=== PATIENT | female | born 1990 | race Caucasian/White ===

== ENCOUNTER 2017-12-08 21:01 | Observation (INO) | payer SELFPAY ==
--- NOTE | 2017-12-08 21:18 | PDOC ---
Rapid Medical Evaluation Time Seen by Provider: 12/08/17 21:13 Medical Evaluation: Allergies Allergy/AdvReac Type Severity Reaction Status Date / Time Sulfa (Sulfonamide Allergy Unknown Verified 02/27/16 21:55 Antibiotics) 12/08/17 21:13 27 year old female with scattered, non-blanching, erythematous, raised lesions to hands, feet (not palms or soles), and legs. Lesions are painful and itchy. Also has multiple lesions to lips. No new medications or foods. No fevers. Has bodyaches and joint pains. Took Benadryl without improvement. Has had similar rash twice in the past, lasted about one week, never definitive diagnosis. V/s unremarkable. Basic labs To Main ED for further evaluation
[2017-12-08 22:18] LABS: ALK PHOS 83 U/L (45-117); ANION GAP 8 (8-16); BASO % 0.2 % (0-2.0); BILIRUBIN,TOTAL 0.2 mg/dL (0.2-1.0); BLOOD UREA NITROGEN 17 mg/dL (7-18); CALCIUM 8.9 mg/dL (8.5-10.1); CHLORIDE 108 mmol/L (98-107); CO2 24 mmol/L (21-32); CREATININE 0.7 mg/dL (0.55-1.02); EOS % 1.6 % (0-4.5); GLUCOSE,RANDOM 101 mg/dL (74-106); HEMATOCRIT 39.6 % (32.4-45.2); HEMOGLOBIN 13.2 GM/dL (10.7-15.3); LYMPH % 32.7 % (8-40); MCH 30.3 pg (25.7-33.7); MCHC 33.4 g/dl (32.0-36.0); MEAN CELL VOLUME 90.7 fl (80-96); MEAN PLT VOLUME 7.9 fl (7.5-11.1); MONO % 7.4 % (3.8-10.2); NEUT % 58.1 % (42.8-82.8); PLATELET COUNT 272 K/MM3 (134-434); POTASSIUM 3.7 mmol/L (3.5-5.1); RBC 4.36 M/mm3 (3.60-5.2); RDW 13.1 % (11.6-15.6); SGOT/AST 19 U/L (15-37); SGPT/ALT 38 U/L (12-78); SODIUM 140 mmol/L (136-145); TOT PROT 7.3 g/dl (6.4-8.2); WHITE BLOOD COUNT 8.1 K/mm3 (4.0-10.0)
[2017-12-08 22:21] LABS: URINE APPEARANCE CLEAR; URINE BILIRUBIN NEGATIVE (NEGATIVE); URINE BLOOD NEGATIVE (NEGATIVE); URINE COLOR YELLOW; URINE GLUCOSE (UA) NEGATIVE (NEGATIVE); URINE KETONE NEGATIVE (NEGATIVE); URINE LEUK ESTERASE TRACE (NEGATIVE); URINE NITRITE NEGATIVE (NEGATIVE); URINE PROTEIN NEGATIVE (NEGATIVE)
[2017-12-08 22:28] LABS: HCG,QUALITATIVE URINE NEGATIVE
[2017-12-08 22:41] LABS: EPI CELLS FEW /HPF (FEW); URINE MUCUS RARE
[2017-12-08 22:42] LABS: INR 1.03 (0.82-1.09); PROTHROMBIN TIME (PATIENT) 11.6 SEC (9.98-11.88)
--- NOTE | 2017-12-09 00:57 | PDOC ---
History of Present Illness - General Chief Complaint: Hives Stated Complaint: HIVES Time Seen by Provider: 12/08/17 21:13 History Source: Patient Exam Limitations: No Limitations - History of Present Illness Initial Comments: 12/09/17 00:58 The patient is a 27F with no PMH who presents with a rash. The patient states that since this morning, she has had a diffuse rash, most prominently on her forearms and R inner thigh. She states that this initially started with involvement of her lip which she thought was a cold sore. She says that she has had a similar rash 1 year ago but it went away on its own and she does not know what it was. She states that she has started metronidazole 2 days ago for BV. She denies any other medications and denies any other PMH. She denies fevers, chills, nausea, vomiting, diarrhea, constipation, CP, SOB. Past History - Past Medical History Allergies/Adverse Reactions: Allergies Allergy/AdvReac Type Severity Reaction Status Date / Time Sulfa (Sulfonamide Allergy Unknown Verified 12/08/17 21:20 Antibiotics) Home Medications: Ambulatory Orders NK [No Known Home Medication] 02/27/16 Asthma: No Cancer: No Cardiac Disorders: No CVA: No COPD: No Diabetes: No HTN: No Seizures: No Thyroid Disease: No - Surgical History Abdominal Surgery: Yes Cholecystectomy: Yes - Reproductive History (#): 11 Para: 5 Therapeutic (s) & number: Yes (5) - Immunization History Immunization Up to Date: No - Suicide/Smoking/Psychosocial Hx Smoking History: Current every day smoker Have you smoked in the past 12 months: Yes Number of Cigarettes Smoked Daily: 10 Information on smoking cessation initiated: No 'Breaking Loose' booklet given: 06/02/15 Hx Alcohol Use: Yes Drug/Substance Use Hx: No Substance Use Type: None Hx Substance Use Treatment: No Review of Systems - Review of Systems Able to Perform ROS?: Yes Comments:: 12/09/17 01:03 GENERAL/CONSTITUTIONAL: No fever or chills. No weakness. HEAD, EYES, EARS, NOSE AND THROAT: No change in vision. No ear pain or discharge. No sore throat. CARDIOVASCULAR: No chest pain, palpitations, or lightheadedness. RESPIRATORY: No cough, wheezing, shortness of breath, or hemoptysis. GASTROINTESTINAL: No nausea, vomiting, diarrhea, constipation, or abdominal pain. GENITOURINARY: No dysuria, frequency, hematuria, or change in urination. MUSCULOSKELETAL: No joint or muscle swelling or pain. No neck or back pain. SKIN: Positive for rash, diffuse. NEUROLOGIC: No headache, numbness, tingling, weakness, loss of consciousness, or change in strength/sensation. ENDOCRINE: No increased thirst. No abnormal weight change. HEMATOLOGIC/LYMPHATIC: No anemia, easy bleeding, or history of blood clots. ALLERGIC/IMMUNOLOGIC: No hives or skin allergy. Is the patient limited [place]i proficient: No *Physical Exam - Vital Signs Last Vital Signs Temp Pulse Resp BP Pulse Ox 98.2 F 83 18 119/75 100 12/08/17 21:17 12/08/17 21:17 12/08/17 21:17 12/08/17 21:17 12/08/17 21:17 - Physical Exam Comments: 12/09/17 01:04 GENERAL: Well developed, well nourished. Awake and alert. No acute distress. HEENT: Vesicles present on lower lip, erythematous and swollen lower lip. Normocephalic, atraumatic. Hearing grossly normal. Moist mucous membranes. PERRLA, EOMI. No conjunctival pallor. Sclera are non-icteric. Oropharynx is clear. NECK: Supple. Full ROM. No JVD. CARDIOVASCULAR: Regular rate and rhythm. No murmurs, rubs, or gallops. PULMONARY: No evidence of respiratory distress. Lungs clear to auscultation bilaterally. No wheezing, rales or rhonchi. ABDOMINAL: Soft. Non-tender. Non-distended. No rebound or guarding. GENITOURINARY: No CVA tenderness bilaterally. MUSCULOSKELETAL: Normal range of motion at all joints. No bony deformities or tenderness. EXTREMITIES: No cyanosis. No clubbing. No edema. No calf tenderness. SKIN: Multiple rashes present: on R inner thigh - target like lesion, circular, 5 cm in length. Multiple circular, raised rashes, erythematous present on forearms. All rashes nonblanchable. Warm and dry. Normal capillary refill. No jaundice. NEUROLOGICAL: Alert, awake, appropriate. Cranial nerves 2-12 intact. Normal speech. PSYCHIATRIC: Cooperative. Good eye contact. Appropriate mood and affect. ED Treatment Course - LABORATORY CBC & Chemistry Diagram: 12/08/17 21:38 12/08/17 21:38 - ADDITIONAL ORDERS Additional order review: Laboratory Results 12/08/17 12/08/17 12/08/17 21:38 21:38 21:38 PT with INR 11.60 INR 1.03 Sodium Potassium Chloride Carbon Dioxide Anion Gap BUN Creatinine Creat Clearance w eGFR Random Glucose Calcium Total Bilirubin AST ALT Alkaline Phosphatase C-Reactive Protein 0.6 H Total Protein Albumin Urine Color Yellow Urine Appearance Clear Urine pH 6.0 Ur Specific [place] 1.026 Urine Protein Negative Urine Glucose (UA) Negative Urine Ketones Negative Urine Blood Negative Urine Nitrite Negative Urine Bilirubin Negative Urine Urobilinogen 2.0 H Ur Leukocyte Esterase Trace Urine WBC (Auto) 3 Urine RBC (Auto) <1 Ur Epithelial Cells Few Urine Mucus Rare Urine HCG, Qual Negative 12/08/17 21:38 PT with INR INR Sodium 140 Potassium 3.7 Chloride 108 H Carbon Dioxide 24 Anion Gap 8 BUN 17 Creatinine 0.7 Creat Clearance w eGFR > 60 Random Glucose 101 Calcium 8.9 Total Bilirubin 0.2 D AST 19 ALT 38 Alkaline Phosphatase 83 C-Reactive Protein Total Protein 7.3 Albumin 4.0 Urine Color Urine Appearance Urine pH Ur Specific [place] Urine Protein Urine Glucose (UA) Urine Ketones Urine Blood Urine Nitrite Urine Bilirubin Urine Urobilinogen Ur Leukocyte Esterase Urine WBC (Auto) Urine RBC (Auto) Ur Epithelial Cells Urine Mucus Urine HCG, Qual 12/08/17 21:38 RBC 4.36 MCV 90.7 MCHC 33.4 RDW 13.1 MPV 7.9 Neutrophils % 58.1 Lymphocytes % 32.7 Monocytes % 7.4 Eosinophils % 1.6 Basophils % 0.2 Medical Decision Making - Medical Decision Making 12/09/17 01:06 The patient is a 27F with no PMH who is presenting with an acute onset rash which started this morning. This is not an allergic rash but could possibly be erythema multiforme or drug reaction 2/2 to taking metronidazole for BV. Will give pain control and benadryl and monitor closely. Labs negative. ESR pending. CRP slightly elevated at 0.6. 12/09/17 04:[address] Clark for obs. *DC/Admit/Observation/Transfer Diagnosis at time of Disposition: Erythema multiforme - Discharge Dispostion Condition at time of disposition: Stable Admit: Yes - Referrals - Patient Instructions - Post Discharge Activity
[2017-12-09] MEDS ORDERED: KETOROLAC TROMETHAMINE 30 MG/1 ML VIAL IVPUSH ONE (00:58)
[2017-12-09] MEDS ORDERED: KETOROLAC TROMETHAMINE 30 MG/1 ML VIAL ONE (01:20)
[2017-12-09 02:47] LABS: ERYTHROCYTE SEDIMENTATION RATE 6 mm/hr (0-20)
--- NOTE | 2017-12-09 02:49 | PDOC ---
Attending Attestation - Resident Resident Name: Antonino Kapoor - ED Attending Attestation I have performed the following: I have examined & evaluated the patient, The case was reviewed & discussed with the resident, I agree w/resident's findings & plan, Exceptions are as noted - HPI HPI: 12/09/17 02:25 27 year old female with no past medical history presents with rash today. The patient reports that 2 days ago, she started to take flagyl for bacterial vaginosis. The patient then today noted tingling in her mouth, and then developed dark, purple rashes throughout upper extremities and lower extremities. Started then to develop blisters. Does not think lips are peeling. Eyes are not red. No fevers, chills. No other exposures. No camping, or hiking. - Physicial Exam PE: 12/09/17 02:48 GENERAL: Awake, alert, and fully oriented, in no acute distress. HEAD: No signs of trauma EYES: PERRLA, EOMI, sclera anicteric, conjunctiva clear ENT: Auricles normal inspection, hearing grossly normal, nares patent, oropharynx clear without exudates. NECK: Normal ROM, supple, no lymphadenopathy, JVD, or masses LUNGS: Breath sounds equal, clear to auscultation bilaterally. No wheezes, and no crackles HEART: Regular rate and rhythm, normal S1 and S2, no murmurs, rubs or gallops ABDOMEN: Soft, nontender, normoactive bowel sounds. No guarding, no rebound. No masses EXTREMITIES: Normal range of motion, no edema. No clubbing or cyanosis. No cords, erythema, or tenderness NEUROLOGICAL: Cranial nerves II through XII grossly intact. Normal speech, normal gait SKIN: Several dark, purple rash with intermittent blistering upper and lower extremities. No oral involvement . - Medical Decision Making 12/09/17 02:49 Vital Signs Temp Pulse Resp BP Pulse Ox 98.2 F 83 18 119/75 100 12/08/17 21:17 12/08/17 21:17 12/08/17 21:17 12/08/17 21:17 12/08/17 21:17 I suspect that the patient has erythema multiforme. No mucosal involvement yet. However, the rash is quite extensive, and patient at risk for zuñiga eneida's Pt instructed to stop the flagyl. Labs, culture, lyme titer, CPK. Admit.
--- NOTE | 2017-12-09 04:37 | HP ---
<Lilly Cobos - Last Filed: 12/09/17 05:30> CHIEF COMPLAINT: hives PCP: HISTORY OF PRESENT ILLNESS: 27 y/o F with PMH bacterial vaginosis (1 yr ago) tx with metronidazole, non- blanching scattered lesions on extremities -with faded lesions(1 yr ago), who presented to the ED with diffuse macular, non-blanching lesions on her upper and lower extremities x 1 day. As per pt, on , she suddenly felt a tingling sensation in her bottom lip, which she thought was a "fever blister." A few hours later, she developed pruritis in her wrists and noticed two erythematous nonblanching circular lesions on the dorsum of her hand (at the base of her thumb and first digit). Pt subsequently developed a targetoid rash on her R inner thigh, fluctuant bullae on her R wrist, and additional dime- sized nonblanching lesions on her elbows and lower extremities. She states that the lesions are very painful and are a/w generalized pruritis. Pt also endorses mild SOB, which she attributes to anxiety. Otherwise denies [place], fever, chills, sick contacts, angioedema, or changes in urinary or bowel function. States that she is mostly indoors, has not been outside to camp, or garden recently. Pt has five children, and was taking care of her godson before her lesions developed. Two days prior, she also states she took her friend's metronidazole, since she was starting to notice foul smelling, creamy vaginal d/c. Pt is allergic to sulfa, but does not know what reaction it causes. ER course was notable for: (1) Benadryl 25mg IVP x 1 (2) Toradol 30mg IVP x 1 (3) Recent Travel: none PAST MEDICAL HISTORY: bacterial vaginosis (1 yr ago) tx with metronidazole, non- blanching scattered lesions on extremities -with faded lesions(1 yr ago) PAST SURGICAL HISTORY: cholecystectmy (2010) Social History: Smoking: has smoked for 14 yrs, 10 cigarettes/day Alcohol: occasionally Drugs: denies Family History: denies Allergies Sulfa (Sulfonamide Antibiotics) Allergy (Unknown, Verified 12/08/17 21:20) unaware of allergic rxn HOME MEDICATIONS: Home Medications Medication Instructions Recorded NK [No Known Home Medication] 02/27/16 Patient does not take any home meds regularly REVIEW OF SYSTEMS CONSTITUTIONAL: Absent: fever, chills, diaphoresis, generalized weakness, malaise, loss of appetite, weight change HEENT: Absent: rhinorrhea, nasal congestion, throat pain, throat swelling, difficulty swallowing, mouth swelling, ear pain, eye pain, visual changes CARDIOVASCULAR: Absent: chest pain, syncope, palpitations, irregular heart rate, lightheadedness , peripheral edema RESPIRATORY: Absent: cough, shortness of breath, dyspnea with exertion, orthopnea, wheezing, stridor, hemoptysis GASTROINTESTINAL: Absent: abdominal pain, abdominal distension, nausea, vomiting, diarrhea, constipation, melena, hematochezia GENITOURINARY: Absent: dysuria, frequency, urgency, hesitancy, hematuria, flank pain, genital pain MUSCULOSKELETAL: Absent: myalgia, arthralgia, joint swelling, back pain, neck pain SKIN: +pruritis, multiple rashes/lesions Absent: rash, itching, pallor HEMATOLOGIC/IMMUNOLOGIC: Absent: easy bleeding, easy bruising, lymphadenopathy, frequent infections ENDOCRINE: Absent: unexplained weight gain, unexplained weight loss, heat intolerance, cold intolerance NEUROLOGIC: Absent: headache, focal weakness or paresthesias, dizziness, unsteady gait, seizure, mental status changes, bladder or bowel incontinence PSYCHIATRIC: Absent: anxiety, depression, suicidal or homicidal ideation, hallucinations. PHYSICAL EXAMINATION Vital Signs - 24 hr 12/08/17 21:17 Temperature 98.2 F Pulse Rate 83 Respiratory 18 Rate Blood Pressure 119/75 O2 Sat by Pulse 100 Oximetry (%) GENERAL: Young female, resting in bed. Awake, alert, and fully oriented, in no acute distress. HEAD: Normal with no signs of trauma. EYES: Pupils equal, round and reactive to light, extraocular movements intact, sclera anicteric, conjunctiva clear. EARS, NOSE, THROAT: Ears normal, nares patent, oropharynx clear without exudates. Moist mucous membranes. NECK: Normal range of motion, supple without lymphadenopathy LUNGS: Breath sounds equal, clear to auscultation bilaterally. No wheezes, and no crackles. No accessory muscle use. HEART: Regular rate and rhythm, normal S1 and S2 without murmur, rub or gallop. ABDOMEN: Soft, nontender, not distended, normoactive bowel sounds, no guarding, no rebound, no masses. UPPER EXTREMITIES: two erythematous nonblanching circular lesions on the dorsum of her hand (at the base of her thumb and first digit)- approx 2.5x2.5cm. R wrist, near palm- fluctuant bullae 3x2cm approx. multiple dime-sized 1x1 circular, nonblanching lesions by b/l epicondyles LOWER EXTREMITIES: 2+ posterior tibial pulses, without edema. R medial thigh: targetoid rash approx 3x3, with scabbing - nonblanching. At base of toes- two circular nonblanching, erythematous lesions. All lesions painful to palpation. NEUROLOGICAL: Cranial nerves II-XII intact. PSYCHIATRIC: Cooperative. Laboratory Results 12/08/17 12/08/17 12/08/17 21:38 21:38 21:38 WBC 8.1 D RBC 4.36 Hgb 13.2 Hct 39.6 MCV 90.7 MCH 30.3 MCHC 33.4 RDW 13.1 Plt Count 272 MPV 7.9 Neutrophils % 58.1 Lymphocytes % 32.7 Monocytes % 7.4 Eosinophils % 1.6 Basophils % 0.2 ESR 6 Sodium 140 Potassium 3.7 Chloride 108 H Carbon Dioxide 24 Anion Gap 8 BUN 17 Creatinine 0.7 Creat Clearance w eGFR > 60 Random Glucose 101 Calcium 8.9 Total Bilirubin 0.2 D AST 19 ALT 38 Alkaline Phosphatase 83 Creatine Kinase C-Reactive Protein 0.6 H Total Protein 7.3 Albumin 4.0 Urine Color HIV P24 Antigen 12/08/17 12/08/17 12/08/17 21:38 21:38 21:38 ESR PT with INR 11.60 INR 1.03 Total Protein Urine Color Yellow Urine Appearance Clear Urine pH 6.0 Ur Specific [place] 1.026 Urine Blood Negative Urine Nitrite Negative Urine Bilirubin Negative Urine Urobilinogen 2.0 H Ur Leukocyte Esterase Trace Urine WBC (Auto) 3 Urine RBC (Auto) <1 Ur Epithelial Cells Few Urine Mucus Rare Urine HCG, Qual Negative HIV 1&2 Antibody Screen Negative HIV P24 Antigen Negative 12/08/17 12/09/17 21:38 01:36 Creatine Kinase 62 C-Reactive Protein 0.6 H ASSESSMENT/PLAN: 27 y/o F with PMH bacterial vaginosis (1 yr ago) tx with metronidazole, non- blanching scattered lesions on extremities -with faded lesions(1 yr ago), who presented to the ED with diffuse macular, non-blanching lesions on her upper and lower extremities x 1 day. Pt admitted to obs for possible erythema multiforme 2/2 drug rxn. #Erythema multiforme rash 2/2 possible drug rxn -similar hx with past lesions, possible rxn to metronidazole -Received Benadryl 25mg IVP in ED -Benadryl 25mg IVP q6hrs, until pruritis resolves -Tylenol 325 mg q6h PRN - for pain -IVF -Avoid metronidazole use -F/u Lyme IgG, IgM -Suggest derm consult if does not resolve #PPX DVT: EAM, SCD's #F/E/N IV NS 75 cc/hr Monitor electrolytes Regular diet #Dispo obs Visit type - Emergency Visit Emergency Visit: Yes Care time: The patient presented to the Emergency Department on the above date and was hospitalized for further evaluation of their emergent condition. - New Patient This patient is new to me today: Yes Date on this admission: 12/09/17 - Critical Care Critical Care patient: No <Betzaida Clark - Last Filed: 12/09/17 06:51> 27 year old female with generalized rash/ cutaneous lesions that occurred day ago and are pruritic . Rash is erythematous, round macular with a blister / desquamation on right wrist Denies fever Took flagyl prior to onset of symptoms Vital Signs Temperature 98.2 F 12/08/17 21:17 Pulse Rate 83 12/08/17 21:17 Respiratory Rate 18 12/08/17 21:17 Blood Pressure 119/75 12/08/17 21:17 O2 Sat by Pulse Oximetry (%) 100 12/08/17 21:17 Diffuse macular non blanching lesions , large one on R interior thigh R wrist blister some lesions have hemorrhagic component CBC, BMP 12/08/17 21:38 12/08/17 21:38 A/P Likely ERythema Multiforme R/O zuñiga johnsons Supportive care benadryl PRN Monitor overnight
[2017-12-09] MEDS ORDERED: SODIUM CHLORIDE 1,000 ML IV SCH (05:15)
[2017-12-09] MEDS ORDERED: ACETAMINOPHEN 325 MG TABLET (FP) PO PRN (05:21)
[2017-12-09 08:39] VITALS: BMI 27.5
--- NOTE | 2017-12-09 08:46 | PN ---
Physical Exam: SUBJECTIVE: Patient seen and examined OBJECTIVE: Vital Signs Intake & Output 12/06/17 12/07/17 12/08/17 12/09/17 23:59 23:59 23:59 23:59 Weight 75.75 kg 75.115 kg Period Temp Pulse Resp BP Sys/Reyes Pulse Ox Last 24 Hr 98 F-98.2 F 74-83 18-20 118-119/72-75 100-100 GENERAL: The patient is awake, alert, and fully oriented, in no acute distress. HEAD: Normal with no signs of trauma. EYES: PERRL, extraocular movements intact, sclera anicteric, conjunctiva clear. No ptosis. ENT: Ears normal, nares patent, oropharynx clear without exudates, moist mucous membranes. NECK: Trachea midline, full range of motion, supple. LUNGS: Breath sounds equal, clear to auscultation bilaterally, no wheezes, no crackles, no accessory muscle use. HEART: Regular rate and rhythm, S1, S2 without murmur, rub or gallop. ABDOMEN: Soft, nontender, nondistended, normoactive bowel sounds, no guarding, no rebound, no hepatosplenomegaly, no masses. EXTREMITIES: 2+ pulses, warm, well-perfused, no edema. NEUROLOGICAL: Cranial nerves II through XII grossly intact. Normal speech, gait not observed. PSYCH: Normal mood, normal affect. SKIN: Warm, dry, normal turgor, no rashes or lesions noted Laboratory Results - last 24 hr 12/08/17 12/08/17 12/08/17 21:38 21:38 21:38 WBC 8.1 D RBC 4.36 Hgb 13.2 Hct 39.6 MCV 90.7 MCH 30.3 MCHC 33.4 RDW 13.1 Plt Count 272 MPV 7.9 Neutrophils % 58.1 Lymphocytes % 32.7 Monocytes % 7.4 Eosinophils % 1.6 Basophils % 0.2 ESR 6 PT with INR INR Sodium 140 Potassium 3.7 Chloride 108 H Carbon Dioxide 24 Anion Gap 8 BUN 17 Creatinine 0.7 Creat Clearance w eGFR > 60 Random Glucose 101 Calcium 8.9 Total Bilirubin 0.2 D AST 19 ALT 38 Alkaline Phosphatase 83 Creatine Kinase C-Reactive Protein 0.6 H Total Protein 7.3 Albumin 4.0 Urine Color Urine Appearance Urine pH Ur Specific [place] Urine Protein Urine Glucose (UA) Urine Ketones Urine Blood Urine Nitrite Urine Bilirubin Urine Urobilinogen Ur Leukocyte Esterase Urine WBC (Auto) Urine RBC (Auto) Ur Epithelial Cells Urine Mucus Urine HCG, Qual HIV 1&2 Antibody Screen HIV P24 Antigen 12/08/17 12/08/17 12/08/17 21:38 21:38 21:38 WBC RBC Hgb Hct MCV MCH MCHC RDW Plt Count MPV Neutrophils % Lymphocytes % Monocytes % Eosinophils % Basophils % ESR PT with INR 11.60 INR 1.03 Sodium Potassium Chloride Carbon Dioxide Anion Gap BUN Creatinine Creat Clearance w eGFR Random Glucose Calcium Total Bilirubin AST ALT Alkaline Phosphatase Creatine Kinase C-Reactive Protein Total Protein Albumin Urine Color Yellow Urine Appearance Clear Urine pH 6.0 Ur Specific [place] 1.026 Urine Protein Negative Urine Glucose (UA) Negative Urine Ketones Negative Urine Blood Negative Urine Nitrite Negative Urine Bilirubin Negative Urine Urobilinogen 2.0 H Ur Leukocyte Esterase Trace Urine WBC (Auto) 3 Urine RBC (Auto) <1 Ur Epithelial Cells Few Urine Mucus Rare Urine HCG, Qual Negative HIV 1&2 Antibody Screen Negative HIV P24 Antigen Negative 12/09/17 01:36 WBC RBC Hgb Hct MCV MCH MCHC RDW Plt Count MPV Neutrophils % Lymphocytes % Monocytes % Eosinophils % Basophils % ESR PT with INR INR Sodium Potassium Chloride Carbon Dioxide Anion Gap BUN Creatinine Creat Clearance w eGFR Random Glucose Calcium Total Bilirubin AST ALT Alkaline Phosphatase Creatine Kinase 62 C-Reactive Protein Total Protein Albumin Urine Color Urine Appearance Urine pH Ur Specific [place] Urine Protein Urine Glucose (UA) Urine Ketones Urine Blood Urine Nitrite Urine Bilirubin Urine Urobilinogen Ur Leukocyte Esterase Urine WBC (Auto) Urine RBC (Auto) Ur Epithelial Cells Urine Mucus Urine HCG, Qual HIV 1&2 Antibody Screen HIV P24 Antigen Active Medications Generic Name Dose Route Start Last Admin Trade Name Freq PRN Reason Stop Dose Admin Acetaminophen 325 mg 12/09/17 05:21 Tylenol - PO Q6H PRN PAIN Diphenhydramine HCl 25 mg 12/09/17 05:30 12/09/17 05:33 Benadryl Injection - IVPUSH 25 mg Q6H-IV MIKAL Administration Sodium Chloride 1,000 mls @ 83 mls/hr 12/09/17 05:15 12/09/17 05:33 Normal Saline - IV 83 mls/hr ASDIR MIKAL Administration No micro No Imaging ASSESSMENT/PLAN:
[2017-12-09 08:50] LABS: BASO % 0.2 % (0-2.0); EOS % 2.9 % (0-4.5); HEMATOCRIT 36.9 % (32.4-45.2); HEMOGLOBIN 12.3 GM/dL (10.7-15.3); LYMPH % 44.8 % (8-40); MCH 30.2 pg (25.7-33.7); MCHC 33.3 g/dl (32.0-36.0); MEAN CELL VOLUME 90.6 fl (80-96); MEAN PLT VOLUME 7.8 fl (7.5-11.1); MONO % 10.9 % (3.8-10.2); NEUT % 41.2 % (42.8-82.8); PLATELET COUNT 242 K/MM3 (134-434); RBC 4.07 M/mm3 (3.60-5.2); RDW 13.2 % (11.6-15.6); WHITE BLOOD COUNT 6.3 K/mm3 (4.0-10.0)
[2017-12-09 08:56] LABS: ANION GAP 9 (8-16); BLOOD UREA NITROGEN 18 mg/dL (7-18); CALCIUM 8.4 mg/dL (8.5-10.1); CHLORIDE 108 mmol/L (98-107); CO2 24 mmol/L (21-32); CREATININE 0.7 mg/dL (0.55-1.02); GLUCOSE,RANDOM 100 mg/dL (74-106); POTASSIUM 3.7 mmol/L (3.5-5.1); SODIUM 141 mmol/L (136-145)
--- NOTE | 2017-12-09 10:00 | EKG ---
Test Reason : Blood Pressure : / mmHG Vent. Rate : 067 BPM Atrial Rate : 067 BPM P-R Int : 164 ms QRS Dur : 094 ms QT Int : 416 ms P-R-T Axes : 017 038 037 degrees QTc Int : 439 ms NORMAL SINUS RHYTHM INCOMPLETE RBBB NO PREVIOUS ECGS AVAILABLE Confirmed by JU MEDINA MD [id number]) on 12/09/2017 10:00:12 AM Referred By: Confirmed By:JU MEDINA MD
--- NOTE | 2017-12-09 12:35 | CON.ID ---
Consult Consult Specialty:: infectious disease Referred by:: hospitalist service Reason for Consultation:: rash - History of Present Illness Chief Complaint: rash History of Present Illness: 27 year old female no history of fever or systemic illness no sick contacts started flagyl 2 days ago bid for bacterial vaginosis, am she awoke at 3 am with a blister on her lip, later scattered lesions on her hands, fee and right thigh she reporta a similar reaction one year ago to flagyl - infact thigh lesion was at same spot no cough, no sore throat no sick contacts monogamous relationship for last 4 years 5 children everyone is well no travel this am is feeling much better no oral lesions, no issues eating no camping or hiking - History Source History Provided By: Patient, Medical Record Limitations to Obtaining History: No Limitations - Past Medical History ...LMP: 11/12/17 - Past Surgical History Past Surgical History: Yes: Cholecystectomy - Alcohol/Substance Use Hx Alcohol Use: Yes - Smoking History Smoking history: Current every day smoker Have you smoked in the past 12 months: Yes Aproximately how many cigarettes per day: 10 - Social History Usual Living Arrangement: With Child ADL: Independent History of Recent Travel: No Home Medications - Allergies Allergies/Adverse Reactions: Allergies Allergy/AdvReac Type Severity Reaction Status Date / Time metronidazole Allergy Severe Rash Verified 12/09/17 13:51 Sulfa (Sulfonamide Allergy Unknown Verified 12/08/17 21:20 Antibiotics) - Home Medications Home Medications: Ambulatory Orders NK [No Known Home Medication] 02/27/16 Family Disease History - Family Disease History Family History: Denies Review of Systems - Review of Systems Constitutional: denies: Chills, Fever Eyes: reports: No Symptoms HENT: reports: No Symptoms. denies: Difficult Swallowing, Mouth Swelling, Throat Pain Neck: reports: No Symptoms Cardiovascular: reports: No Symptoms. denies: Chest Pain Respiratory: reports: No Symptoms. denies: Cough Gastrointestinal: reports: No Symptoms. denies: Abdominal Pain, Constipation, Diarrhea, Indigestion Genitourinary: reports: No Symptoms. denies: Burning, Discharge, Dysuria, Flank Pain Breasts: reports: No Symptoms Reported Musculoskeletal: reports: No Symptoms Integumentary: reports: Other (per HPI) Neurological: reports: No Symptoms Physical Exam Vital Signs: Vital Signs Temperature 98.4 F 12/09/17 09:02 Pulse Rate 64 12/09/17 09:02 Respiratory Rate 18 12/09/17 09:02 Blood Pressure 92/51 12/09/17 09:02 O2 Sat by Pulse Oximetry (%) 100 12/09/17 08:27 Constitutional: Yes: Well Nourished, No Distress, Calm Eyes: Yes: WNL, Conjunctiva Clear, EOM Intact HENT: Yes: Atraumatic, Normocephalic, Other (slight swelling lower lip). No: Nasal Congestion, Pharyngeal Erythema, Thrush, Tonsillar Exudate Neck: Yes: Supple. No: Lymphadenopathy Cardiovascular: Yes: Regular Rate and Rhythm Respiratory: Yes: Regular, CTA Bilaterally Gastrointestinal: Yes: Normal Bowel Sounds, Soft ...Rectal Exam: Yes: Deferred Renal/: No: CVA Tenderness - Left, CVA Tenderness - Right Musculoskeletal: Yes: WNL Extremities: Yes: WNL Edema: No Peripheral Pulses WNL: No Integumentary: Yes: Rash (darkened flat circular lesions on both handsinner right wrist with bullous lesion, left thigh with circular lesion with dark center) Labs: CBC, BMP 12/09/17 07:40 12/09/17 07:40 hiv negative Problem List - Problems (1) Rash Code(s): R21 - RASH AND OTHER NONSPECIFIC SKIN ERUPTION Assessment/Plan erythema multiforme versus fixed drug eruptions ?flagyl continue benadryl clinically improved rpr, hsv pending derm consult pending-d/w dr parson who agrees this is fixed drug eruption
--- NOTE | 2017-12-09 17:24 | DS ---
Physical Exam: SUBJECTIVE: Patient seen and examined by me this AM - No overnight events. Endorses diffuse maculopapular rash on BL forearms, palms , lip and R medial thigh. Denies any f/c, [place], vision changes, cough, SOB, CP, N/ V, abdominal pain, diarrhea, dysuria, peripheral edema. Endorses worsening dyspareunia, vaginal pruritus, odorous discharge for 3-4 days duration. Took 4 doses of flagyl 2 days ago and noted rash beginning yesterday. Identical to prior rash from flagyl use one year ago after having similar symptoms. Pt sexually active with SO (male), does not use condoms, diagnosed with BV one year ago, no other STIs. Last seen multiple months ago for STI testing, which pt states was negative. OBJECTIVE: Vital Signs Intake & Output 12/06/17 12/07/17 12/08/17 12/09/17 23:59 23:59 23:59 23:59 Intake Total 814 Balance 814 Weight 75.75 kg 75.115 kg Period Temp Pulse Resp BP Sys/Reyes Pulse Ox Last 24 Hr 98 F-98.4 F 64-83 18-20 92-120/42-75 100-100 PHYSICAL EXAM GENERAL: The patient is awake, alert, and fully oriented, in no acute distress. HEAD: Normal with no signs of trauma. White macular [id number] lesion on lower lip with no drainage or purulence. EYES: PERRL, extraocular movements intact, sclera anicteric, conjunctiva clear. ENT: Ears normal, nares patent, oropharynx with white exudate on posterior tongue, moist mucous membranes. NECK: Trachea midline, full range of motion, supple. LUNGS: Breath sounds equal, clear to auscultation bilaterally, no wheezes, no crackles, no accessory muscle use. HEART: Regular rate and rhythm, S1, S2 without murmur, rub or gallop. ABDOMEN: Soft, nontender, nondistended, normoactive bowel sounds, no guarding, no rebound, no hepatosplenomegaly, no masses. EXTREMITIES: R medial targetoid rash ([id number]) on R thigh. 2+ pulses, warm, well -perfused, no edema. Concur with prior rash findings described in H+P: "two erythematous nonblanching circular lesions on the dorsum of her hand (at the base of her thumb and first digit)- approx 2.5x2.5cm. R wrist, near palm- fluctuant bullae 3x2cm approx. multiple dime-sized 1x1 circular, nonblanching lesions by b/l epicondyles" NEUROLOGICAL: Cranial nerves II through XII grossly intact. Normal speech, gait not observed. PSYCH: Normal mood, normal affect. SKIN: Warm, dry, normal turgor, no rashes or lesions noted. Skin findings as noted above in extremities. No lesions on dorsal surface of feet or BL legs apart from medial targetoid lesion on thigh. No lesions noted on trunk, neck. Genitals: Small amount of thick white discharge noted on the interior L labial minora edge. No other lesions, erythema noted. LABS Laboratory Results - last 24 hr CBC, [facility] 12/09/17 07:40 12/09/17 07:40 12/08/17 12/08/17 12/08/17 21:38 21:38 21:38 WBC 8.1 D RBC 4.36 Hgb 13.2 Hct 39.6 MCV 90.7 MCH 30.3 MCHC 33.4 RDW 13.1 Plt Count 272 MPV 7.9 Neutrophils % 58.1 Lymphocytes % 32.7 Monocytes % 7.4 Eosinophils % 1.6 Basophils % 0.2 ESR 6 PT with INR INR Sodium 140 Potassium 3.7 Chloride 108 H Carbon Dioxide 24 Anion Gap 8 BUN 17 Creatinine 0.7 Creat Clearance w eGFR > 60 Random Glucose 101 Calcium 8.9 Total Bilirubin 0.2 D AST 19 ALT 38 Alkaline Phosphatase 83 Creatine Kinase C-Reactive Protein 0.6 H Total Protein 7.3 Albumin 4.0 Urine Color Urine Appearance Urine pH Ur Specific [place] Urine Protein Urine Glucose (UA) Urine Ketones Urine Blood Urine Nitrite Urine Bilirubin Urine Urobilinogen Ur Leukocyte Esterase Urine WBC (Auto) Urine RBC (Auto) Ur Epithelial Cells Urine Mucus Urine HCG, Qual RPR Titer HIV 1&2 Antibody Screen HIV P24 Antigen 12/08/17 12/08/17 12/08/17 21:38 21:38 21:38 WBC RBC Hgb Hct MCV MCH MCHC RDW Plt Count MPV Neutrophils % Lymphocytes % Monocytes % Eosinophils % Basophils % ESR PT with INR 11.60 INR 1.03 Sodium Potassium Chloride Carbon Dioxide Anion Gap BUN Creatinine Creat Clearance w eGFR Random Glucose Calcium Total Bilirubin AST ALT Alkaline Phosphatase Creatine Kinase C-Reactive Protein Total Protein Albumin Urine Color Yellow Urine Appearance Clear Urine pH 6.0 Ur Specific [place] 1.026 Urine Protein Negative Urine Glucose (UA) Negative Urine Ketones Negative Urine Blood Negative Urine Nitrite Negative Urine Bilirubin Negative Urine Urobilinogen 2.0 H Ur Leukocyte Esterase Trace Urine WBC (Auto) 3 Urine RBC (Auto) <1 Ur Epithelial Cells Few Urine Mucus Rare Urine HCG, Qual Negative RPR Titer HIV 1&2 Antibody Screen Negative HIV P24 Antigen Negative 12/09/17 12/09/17 12/09/17 01:36 07:40 07:40 WBC 6.3 RBC 4.07 Hgb 12.3 Hct 36.9 MCV 90.6 MCH 30.2 MCHC 33.3 RDW 13.2 Plt Count 242 MPV 7.8 Neutrophils % 41.2 L D Lymphocytes % 44.8 H D Monocytes % 10.9 H Eosinophils % 2.9 D Basophils % 0.2 ESR PT with INR INR Sodium 141 Potassium 3.7 Chloride 108 H Carbon Dioxide 24 Anion Gap 9 BUN 18 Creatinine 0.7 Creat Clearance w eGFR Random Glucose 100 Calcium 8.4 L Total Bilirubin AST ALT Alkaline Phosphatase Creatine Kinase 62 C-Reactive Protein Total Protein Albumin Urine Color Urine Appearance Urine pH Ur Specific [place] Urine Protein Urine Glucose (UA) Urine Ketones Urine Blood Urine Nitrite Urine Bilirubin Urine Urobilinogen Ur Leukocyte Esterase Urine WBC (Auto) Urine RBC (Auto) Ur Epithelial Cells Urine Mucus Urine HCG, Qual RPR Titer HIV 1&2 Antibody Screen HIV P24 Antigen 12/09/17 10:00 WBC RBC Hgb Hct MCV MCH MCHC RDW Plt Count MPV Neutrophils % Lymphocytes % Monocytes % Eosinophils % Basophils % ESR PT with INR INR Sodium Potassium Chloride Carbon Dioxide Anion Gap BUN Creatinine Creat Clearance w eGFR Random Glucose Calcium Total Bilirubin AST ALT Alkaline Phosphatase Creatine Kinase C-Reactive Protein Total Protein Albumin Urine Color Urine Appearance Urine pH Ur Specific [place] Urine Protein Urine Glucose (UA) Urine Ketones Urine Blood Urine Nitrite Urine Bilirubin Urine Urobilinogen Ur Leukocyte Esterase Urine WBC (Auto) Urine RBC (Auto) Ur Epithelial Cells Urine Mucus Urine HCG, Qual RPR Titer Nonreactive HIV 1&2 Antibody Screen HIV P24 Antigen RPR negative, HIV negative. Lyme, HSV nonreactive No imaging Consults: [facility] Infectious Disease HOSPITAL COURSE: 27 y/o F with PMH bacterial vaginosis (1 yr ago) tx with metronidazole, non- blanching scattered lesions on extremities -with faded lesions(1 yr ago), who presented to the ED with diffuse macular, non-blanching lesions on her upper and lower extremities x 1 day. Pt states this rash presentation identical to one year ago when she Flagyl for BV. Pt endorsed subjective f/c and experienced improvement in pruritis with benadryl. Pt also endorsed worsening dyspareunia, vaginal discharge and pruritus for last 3-4 days, for which she initially took the flagyl. Pt with no lab abnormalities in ED, no imaging ordered. Pt given toradol, benadryl for pruritis, rash and pain. UA negative. Physical exam notable for diffuse BL maculopapular rash on BL upper extremities, in addition to targetoid lesion on R medial thigh and white papule on lip. Vaginal exam notable for trace white vaginal fluid in at fornix, no obvious lesions or thick , malodorous discharge. RPR, HIV, HSV, lyme titers sent. ID and Derm consulted, both agree rash is fixed drug rash with no infectious component, recommending benadryl and ok for discharge. Pt discharged with outpt follow-up with PCP in one week and OBGYN f/u for vaginal discharge/pruritus. Date of Admission:12/09/17 Date of Discharge: 12/09/17 Pt stable and medically cleared for discharge with follow-up in resident clinic in one week. Referral provided for OBGYN for further evaluation and treatment of vaginal discharge. Minutes to complete discharge: 35 Discharge Summary Reason For Visit: ERYTHEMA MULTIFORME Current Active Problems Rash (Acute) Condition: Stable - Instructions Diet, Activity, Other Instructions: During your stay you were treated for a drug rash, as determined by our staff infectious disease and dermatology teams. Medications: No new medications were added to your regimen. Please take benadryl 25-50mg, every 4-8 hours as needed for your rash. You can get this medication over the counter with no prescription. Please continue taking all other home medication as previously prescribed. Follow-ups: Please call to schedule an appointment in our outpatient clinic to establish a primary care provider. Contact information has been provided in this packet. Please schedule an appointment within one week. Please schedule an appointment with your OBGYN physician in one week for further evaluation of your vaginal symptoms. If you require an OBGYN, contact information has been provided in this packet for Dr. Cornejo, our preferred provider. Please call to schedule an appointment within one week. Please inform your primary care doctor to follow up on the results of your infectious disease tests taken during your visit in the hospital. Please inform them to contact the hospital for a comprehensive report of results. The tests that are pending are HSV and Lyme studies. DO NOT USE FLAGYL (METRONIDAZOLE) ANYMORE FOR ANTIOBIOTIC TREATMENT OF ANY INFECTIONS. YOUR RASH WAS DETERMINED TO BE A FIXED DRUG RASH AND YOU WILL HAVE FURTHER REACTIONS IF YOU CONTINUE TO TAKE FLAGYL! Please return to the hospital if you experience any of the following symptoms: - Worsening of your rash - Persistent fevers/chills - Any new or concerning symptoms Referrals: Elkin Phan MD [Staff Physician] - 1 Week Luna Cornejo MD [Staff Physician] - 1 Week Disposition: HOME - Home Medications Comprehensive Discharge Medication List: Ambulatory Orders NK [No Known Home Medication] 02/27/16 This patient is new to me today: Yes Date on this admission: 12/09/17 Emergency Visit: Yes ED Registration Date: 12/09/17 Care time: The patient presented to the Emergency Department on the above date and was hospitalized for further evaluation of their emergent condition. Critical Care patient: No - Discharge Referral Referred to [facility] Med P.C.: No
--- NOTE | 2017-12-09 17:29 | PN ---
Teaching Attending Note Name of Resident: Adithya Angel ATTENDING PHYSICIAN STATEMENT Time of evaluation: 9:45 AM I saw and evaluated the patient. I reviewed the resident's note and discussed the case with the resident. I agree with the resident's findings and plan as documented. SUBJECTIVE: Patient seen and examined. reports itching over her lesions, no other complaints , stable from last night. Patient reports taking flagyl from a friend and then noticed, visicles with discharge over the lips, than rash over right wrist, that progressed to blister, another blister dorsum right palm, then small macular rash over left hand, also circular 2 cm lesion over right inner thigh and small lesions over dorsum of left foot. Itching in character and symptoms improve with benadryl. Similar exact episode a year ago when took flagyl. OBJECTIVE: Vital Signs Period Temp Pulse Resp BP Sys/Reyes Pulse Ox Last 24 Hr 98 F-98.4 F 64-83 18-20 92-120/42-75 100-100 Intake & Output 12/06/17 12/07/17 12/08/17 12/09/17 23:59 23:59 23:59 23:59 Intake Total 814 Balance 814 Weight 167 lb 165 lb 9.6 oz GeneralL sitting in bed in no acute distress Skin: lower lip blistering with clear discharge, right wrist 1 cm blister on ventral right hand, another blister on dorsum of right thumb base with purple base, about 3 cm oval target lesion right inner thigh, small macular lesions over dosum right foot, skin inspected, no lesions otherwise Genital: scant whitish vaginal discharge, no blisters/rash or erythema noted Abdomen; soft, NT, nD, positive bowel sounds HEENT: no erythema/discharge or vesicles on visible oral mucosa pharyngeal area chest: CTAB, no rales or wheezing Active Medications Generic Name Dose Route Start Last Admin Trade Name Freq PRN Reason Stop Dose Admin Acetaminophen 325 mg 12/09/17 05:21 Tylenol - PO Q6H PRN PAIN Diphenhydramine HCl 25 mg 12/09/17 05:30 12/09/17 14:24 Benadryl Injection - IVPUSH 25 mg Q6H-IV MIKAL Administration Sodium Chloride 1,000 mls @ 83 mls/hr 12/09/17 05:15 12/09/17 05:33 Normal Saline - IV 83 mls/hr ASDIR MIKAL Administration Laboratory Results - last 24 hr 12/08/17 12/08/17 12/08/17 21:38 21:38 21:38 WBC 8.1 D RBC 4.36 Hgb 13.2 Hct 39.6 MCV 90.7 MCH 30.3 MCHC 33.4 RDW 13.1 Plt Count 272 MPV 7.9 Neutrophils % 58.1 Lymphocytes % 32.7 Monocytes % 7.4 Eosinophils % 1.6 Basophils % 0.2 ESR 6 PT with INR INR Sodium 140 Potassium 3.7 Chloride 108 H Carbon Dioxide 24 Anion Gap 8 BUN 17 Creatinine 0.7 Creat Clearance w eGFR > 60 Random Glucose 101 Calcium 8.9 Total Bilirubin 0.2 D AST 19 ALT 38 Alkaline Phosphatase 83 Creatine Kinase C-Reactive Protein 0.6 H Total Protein 7.3 Albumin 4.0 Urine Color Urine Appearance Urine pH Ur Specific [place] Urine Protein Urine Glucose (UA) Urine Ketones Urine Blood Urine Nitrite Urine Bilirubin Urine Urobilinogen Ur Leukocyte Esterase Urine WBC (Auto) Urine RBC (Auto) Ur Epithelial Cells Urine Mucus Urine HCG, Qual RPR Titer HIV 1&2 Antibody Screen HIV P24 Antigen 12/08/17 12/08/17 12/08/17 21:38 21:38 21:38 WBC RBC Hgb Hct MCV MCH MCHC RDW Plt Count MPV Neutrophils % Lymphocytes % Monocytes % Eosinophils % Basophils % ESR PT with INR 11.60 INR 1.03 Sodium Potassium Chloride Carbon Dioxide Anion Gap BUN Creatinine Creat Clearance w eGFR Random Glucose Calcium Total Bilirubin AST ALT Alkaline Phosphatase Creatine Kinase C-Reactive Protein Total Protein Albumin Urine Color Yellow Urine Appearance Clear Urine pH 6.0 Ur Specific [place] 1.026 Urine Protein Negative Urine Glucose (UA) Negative Urine Ketones Negative Urine Blood Negative Urine Nitrite Negative Urine Bilirubin Negative Urine Urobilinogen 2.0 H Ur Leukocyte Esterase Trace Urine WBC (Auto) 3 Urine RBC (Auto) <1 Ur Epithelial Cells Few Urine Mucus Rare Urine HCG, Qual Negative RPR Titer HIV 1&2 Antibody Screen Negative HIV P24 Antigen Negative 12/09/17 12/09/17 12/09/17 01:36 07:40 07:40 WBC 6.3 RBC 4.07 Hgb 12.3 Hct 36.9 MCV 90.6 MCH 30.2 MCHC 33.3 RDW 13.2 Plt Count 242 MPV 7.8 Neutrophils % 41.2 L D Lymphocytes % 44.8 H D Monocytes % 10.9 H Eosinophils % 2.9 D Basophils % 0.2 ESR PT with INR INR Sodium 141 Potassium 3.7 Chloride 108 H Carbon Dioxide 24 Anion Gap 9 BUN 18 Creatinine 0.7 Creat Clearance w eGFR Random Glucose 100 Calcium 8.4 L Total Bilirubin AST ALT Alkaline Phosphatase Creatine Kinase 62 C-Reactive Protein Total Protein Albumin Urine Color Urine Appearance Urine pH Ur Specific [place] Urine Protein Urine Glucose (UA) Urine Ketones Urine Blood Urine Nitrite Urine Bilirubin Urine Urobilinogen Ur Leukocyte Esterase Urine WBC (Auto) Urine RBC (Auto) Ur Epithelial Cells Urine Mucus Urine HCG, Qual RPR Titer HIV 1&2 Antibody Screen HIV P24 Antigen 12/09/17 10:00 WBC RBC Hgb Hct MCV MCH MCHC RDW Plt Count MPV Neutrophils % Lymphocytes % Monocytes % Eosinophils % Basophils % ESR PT with INR INR Sodium Potassium Chloride Carbon Dioxide Anion Gap BUN Creatinine Creat Clearance w eGFR Random Glucose Calcium Total Bilirubin AST ALT Alkaline Phosphatase Creatine Kinase C-Reactive Protein Total Protein Albumin Urine Color Urine Appearance Urine pH Ur Specific [place] Urine Protein Urine Glucose (UA) Urine Ketones Urine Blood Urine Nitrite Urine Bilirubin Urine Urobilinogen Ur Leukocyte Esterase Urine WBC (Auto) Urine RBC (Auto) Ur Epithelial Cells Urine Mucus Urine HCG, Qual RPR Titer Nonreactive HIV 1&2 Antibody Screen HIV P24 Antigen ASSESSMENT AND PLAN: 27 yof with fixed drug reaction to flagyl. ID/dermatology input appreciated. Fixed drug reaction to flagyl as discussed. benadyl prn, no additional treatment. Patient advised to avoid flagyl in future and needs outpatient apartment hotel manager/PCP for follow up. OK for d/c as discussed with ID and dermatology. d/c home today. Plan discussed with patient in detail, all questions answered.
[2017-12-09 17:54] VITALS: BP 104/67; PULSE 72; TEMP 98
== END 2017-12-09 18:39 | disposition home or self-care (01) ==
LOC: JERFT 21:01 → JERBED 12-09 04:24 → UNDOADMOB 12-09 04:27 → J7W 12-09 06:54
PROVIDERS: ADMIT Internal Medicine; ATTEND Hospitalist
PROC: 3E0333Z Introduction of Anti-inflammatory into Peripheral Vein, Percutaneous Approach (ICD-10-PCS; principal; 2017-12-09)
PROC: 3E033GC Introduction of Other Therapeutic Substance into Peripheral Vein, Percutaneous Approach (ICD-10-PCS; 2017-12-09)
PROC: 3E0337Z Introduction of Electrolytic and Water Balance Substance into Peripheral Vein, Percutaneous Approach (ICD-10-PCS; 2017-12-09)
DX: R21 Rash and other nonspecific skin eruption (principal); F17.210 Nicotine dependence, cigarettes, uncomplicated; Z88.2 Allergy status to sulfonamides
CPT/HCPCS: 36415; 80048; 80053; 81003; 81015; 82550; 84703; 85025; 85610; 85651; 86140; 86593; 87529; 93005; 93010; 99284-25; G0378

== ENCOUNTER 2018-11-23 20:06 | Emergency (ER) | payer OTHER ==
--- NOTE | 2018-11-23 20:10 | PDOC ---
Rapid Medical Evaluation Time Seen by Provider: 11/23/18 20:08 Medical Evaluation: Allergies Allergy/AdvReac Type Severity Reaction Status Date / Time metronidazole Allergy Severe Rash Verified 12/09/17 13:51 Sulfa (Sulfonamide Allergy Unknown Verified 12/08/17 21:20 Antibiotics) 11/23/18 20:08 I have performed a brief in-person evaluation of this patient. The patient presents with a chief complaint of: rash and lip swelling after starting antibiotics for vaginal infection Pertinent physical exam findings: Erythema below lower lip without obvious swelling, well-circumscribed, circular areas if rash on right arm. No stridor, wheezing, or drooling. I have ordered the following: N/a The patient will proceed to the ED for further evaluation.
[2018-11-23 20:14] VITALS: BP 133/90; PULSE 96; TEMP 98.7; BMI 28.3
--- NOTE | 2018-11-23 20:21 | PDOC ---
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 Patient states that she has been using metronidazole for a vaginal infection and noticed the rash came back. She states that the rash is itchy. Denies fevers, chills, blisters, difficulty breathing and shortness of breath. Past History - Travel Traveled outside of the country in the last 30 days: No Close contact w/someone who was outside of country & ill: No - Past Medical History Allergies/Adverse Reactions: Allergies Allergy/AdvReac Type Severity Reaction Status Date / Time metronidazole Allergy Severe Rash Verified 11/23/18 20:13 Sulfa (Sulfonamide Allergy Unknown Verified 11/23/18 20:13 Antibiotics) Home Medications: Ambulatory Orders Diphenhydramine HCl [Benadryl -] 25 mg PO Q6H #28 capsule 11/23/18 Fluconazole [Diflucan -] 100 mg PO DAILY 11/23/18 metroNIDAZOLE 0.75% VAG. GEL [Metrogel 0.75% *Vaginal Gel* -] 1 applic VG HS Asthma: No Cancer: No Cardiac Disorders: No CVA: No COPD: Yes Diabetes: No HTN: No Seizures: No Thyroid Disease: No - Surgical History Abdominal Surgery: Yes Cholecystectomy: Yes (2010) - Reproductive History (#): 11 Para: 5 Therapeutic (s) & number: Yes (5) - Immunization History Immunization Up to Date: No - Suicide/Smoking/Psychosocial Hx Smoking History: Current every day smoker Have you smoked in the past 12 months: Yes Number of Cigarettes Smoked Daily: 6 Information on smoking cessation initiated: No 'Breaking Loose' booklet given: 06/02/15 Hx Alcohol Use: No Drug/Substance Use Hx: Yes Substance Use Type: None Hx Substance Use Treatment: No Review of Systems - Review of Systems Able to Perform ROS?: Yes Comments:: 11/23/18 20:42 CONSTITUTIONAL: Absent: fever, chills, diaphoresis, generalized weakness, malaise, loss of appetite HEENT: Absent: rhinorrhea, nasal congestion, throat pain, throat swelling, difficulty swallowing, mouth swelling, ear pain, eye pain, visual Changes CARDIOVASCULAR: Absent: chest pain, loss of consciousness, palpitations, irregular heart rate, peripheral edema RESPIRATORY: Absent: cough, shortness of breath, dyspnea with exertion, orthopnea, wheezing, stridor, hemoptysis GASTROINTESTINAL: Absent: abdominal pain, abdominal distension, nausea, vomiting, diarrhea, constipation, melena, hematochezia GENITOURINARY: Absent: dysuria, frequency, urgency, hesitancy, hematuria, flank pain, genital pain MUSCULOSKELETAL: Absent: myalgia, arthralgia, joint swelling SKIN: Present: rash Absent: itching, pallor HEMATOLOGIC/IMMUNOLOGIC: Absent: easy bleeding, easy bruising, lymphadenopathy, frequent infections ENDOCRINE: Absent: unexplained weight gain, unexplained weight loss, heat intolerance, cold intolerance NEUROLOGIC: Absent: headache, focal weakness or paresthesias, dizziness, unsteady gait, seizure, mental status changes, bladder or bowel incontinence PSYCHIATRIC: Absent: anxiety, depression, suicidal or homicidal ideation, hallucinations. 11/23/18 20:52 Is the patient limited Kyrgyz proficient: No *Physical Exam - Vital Signs Last Vital Signs Temp Pulse Resp BP Pulse Ox 98.7 F 96 H 18 133/90 100 11/23/18 20:11 11/23/18 20:11 11/23/18 20:11 11/23/18 20:11 11/23/18 20:11 - Physical Exam Comments: 11/23/18 20:42 GENERAL: Well developed, well nourished. Awake and alert. No acute distress. HEENT: Normocephalic, atraumatic. PERRLA, EOMI. No conjunctival pallor. Sclera are non- icteric. Moist mucous membranes. Oropharynx is clear. NECK: Supple. Full ROM. No JVD. Carotid pulses 2+ and symmetric, without bruits. No thyromegaly. No lymphadenopathy. CARDIOVASCULAR: Regular rate and rhythm. No murmurs, rubs, or gallops. Distal pulses are 2+ and symmetric. PULMONARY: No evidence of respiratory distress. Lungs clear to auscultation bilaterally. No wheezing, rales or rhonchi. ABDOMINAL: Soft. Non-tender. Non-distended. No rebound or guarding. No organomegaly. Normoactive bowel sounds. MUSCULOSKELETAL Normal range of motion at all joints. No bony deformities or tenderness. No CVA tenderness. EXTREMITIES: No cyanosis. No clubbing. No edema. No calf tenderness. SKIN: Target dusky lesions to volar R wrist, R dorsal wrist (x2), L wrist (1), R inner thigh x1. Warm and dry. Normal capillary refill. No rashes. No jaundice. NEUROLOGICAL: Alert, awake, appropriate. Cranial nerves 2-12 intact. No deficits to light touch and temperature in face, upper extremities and lower extremities. No motor deficits in the in face, upper extremities and lower extremities. Normoreflexic in the upper and lower extremities. Normal speech. Toes are down- going bilaterally. Gait is normal without ataxia. PSYCHIATRIC: Cooperative. Good eye contact. Appropriate mood and affect. Moderate Sedation - Procedure Monitoring Vital Signs: Procedure Monitoring Vital Signs Temperature 98.7 F 11/23/18 20:11 Pulse Rate 96 H 11/23/18 20:11 Respiratory Rate 18 11/23/18 20:11 Blood Pressure 133/90 11/23/18 20:11 O2 Sat by Pulse Oximetry (%) 100 11/23/18 20:11 Medical Decision Making - Medical Decision Making 11/23/18 20:54 Patient is a 19-year-old female who presents for a rash to her wrists and inner thigh. On exam patient presents with drug reaction, erythema multiforme appearing rash to her wrists and inner leg, making up less than 10% of her body surface. Mucosal surfaces are not affected. No rashes in the vaginal region. Patient has been seen by ID for this in the past who determined it was a drug reaction. We'll give Benadryl in the ER Advised patient that she should not take metronidazole/flagyl. Discharge home with strict return precautions. I discussed the physical exam findings, ancillary test results and final diagnoses with the patient. I answered all of the patient's questions. The patient was satisfied with the care received and felt comfortable with the discharge plan and treatment plan. The Patient agrees to follow up with the primary care physician/specialist within 24-72 hours. Return precautions were given. *DC/Admit/Observation/Transfer Diagnosis at time of Disposition: Adverse drug reaction Qualifiers: Encounter type: initial encounter Qualified Code(s): T50.905A - Adverse effect of unspecified drugs, medicaments and biological substances, initial encounter - Discharge Dispostion Disposition: HOME Condition at time of disposition: Stable Decision to Admit order: No - Prescriptions Prescriptions: Diphenhydramine HCl [Benadryl -] 25 mg PO Q6H #28 capsule - Referrals Referrals: Estephanie Bernard MD [Staff Physician] - Brenda Atwood MD [Staff Physician] - Loan Wray DO [Staff Physician] - - Patient Instructions Printed Discharge Instructions: DI for Adverse Drug Reaction -- Allergic Additional Instructions: STOP TAKING METRONIDAZOLE/FLAGYL (it is the same medication). 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
[2018-11-23] MEDS ORDERED: diphenhydrAMINE HCL 25 MG CAPSULE (FP) PO ONE ×2 (20:35→20:38)
== END 2018-11-23 21:01 | disposition home or self-care (01) ==
LOC: JERFT 20:06
DX: R21 Rash and other nonspecific skin eruption (principal); T37.3X5A Adverse effect of other antiprotozoal drugs, initial encounter
CPT/HCPCS: 99281-25

== ENCOUNTER 2020-08-06 19:26 | Emergency (ER) | payer OTHER ==
--- NOTE | 2020-08-06 19:35 | PDOC ---
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 Patient had obtained the Diflucan from an acquaintance to treat vaginal candidiasis. The patient states she has taken Diflucan in the past without any adverse effect. She states that soon after she ingested the Diflucan she felt "tingling" in her arms. Over the next few hours she developed erythematous lesions with blisters below her lower lip, on the volar surface of her right wrist, medial surface of the proximal right thigh as well as flat erythematous rash scattered on lower extremities. This pattern was identical to that during previous fixed drug eruption episodes. She denied lip/tongue swelling or difficulty breathing/swallowing. She presents now because of persistent itching and mild burning pain in the rash. Patient has been taking Benadryl with last dose of 25 mg taken approximately 7 hours prior to presentat ion. She has not taken any other medication. Allergies as noted above (fixed drug eruption) No daily medications usually Smokes half pack of cigarettes daily for the last 12 years; no daily alcohol or other recreational drug use Past History - Medical History Allergies/Adverse Reactions: Allergies Allergy/AdvReac Type Severity Reaction Status Date / Time metronidazole Allergy Severe Rash Verified 08/06/20 19:29 Sulfa (Sulfonamide Allergy Unknown Verified 08/06/20 19:29 Antibiotics) Home Medications: Ambulatory Orders Triamcinolone 0.1% Cream [Aristocort 0.1% Cream -] 1 applic TP BID #1 tube 08/06/20 Asthma: No Cancer: No Cardiac Disorders: No CVA: No COPD: Yes Diabetes: No HTN: No Seizures: No Thyroid Disease: No - Surgical History Abdominal Surgery: Yes Cholecystectomy: Yes (2010) - Reproductive History (#): 11 Para: 5 Therapeutic (s) & number: Yes (5) - Immunization History Immunization Up to Date: No - Psycho-Social/Smoking History Smoking History: Current every day smoker Have you smoked in the past 12 months: Yes Number of Cigarettes Smoked Daily: 6 'Breaking Loose' booklet given: 06/02/15 Review of Systems - Review of Systems Able to Perform ROS?: Yes Comments:: 12 point review of systems is negative except for what is noted in the history of present illness *Physical Exam - Physical Exam GENERAL: Adult female, alert and oriented x3 mild distress secondary to discomfort from rash lesions HEAD: Normal with no signs of trauma. EYES: PERRLA, EOMI, sclera anicteric, conjunctiva clear. ENT: Ears normal, nares patent, oropharynx clear without exudates. Dry mucous membranes. NECK: Normal range of motion, supple without lymphadenopathy, JVD, or masses. LUNGS: Breath sounds equal, clear to auscultation bilaterally. No wheezes, and no crackles. HEART:Regular rate and rhythm, normal S1 and S2 without murmur, rub or gallop. ABDOMEN:.normal bowel sounds No guarding,tenderness or rebound.No masses No distention. EXTREMITIES: Normal range of motion, no edema. No clubbing or cyanosis. No erythema, or tenderness. NEUROLOGICAL: Cranial nerves II through XII grossly intact. Normal speech. No focal neurological deficits. SKIN: 2 cm x 1 cm area of vesicles on erythematous base below lower lip; 2.5 cm oval bullae on erythematous base volar surface of the right wrist; 3 cm circular erythematous macule with slightly darkened central area on medial portion of proximal right thigh; scattered smaller erythematous macules of bilateral dorsal surfaces of hands and lower legs Medical Decision Making - Medical Decision Making As noted above, is 29-year-old woman with a history of fixed drug eruption to Flagyl and Bactrim presents with nearly identical rash that began few hours after taking fluconazole for vaginal candidiasis. The patient has had no upper airway edema or difficulty swallowing/breathing. Exam as noted above Patient was admitted to [facility] 12/09/2017 with rash after above meds and was seen there by Dr. Jamila Lew(Dermatology consult) who confirmed that this was a classic presentation of a fixed stroke eruption. The patient received Benadryl while an inpatient and relates that the rash resolved over a number of days (patient is unsure how long it took). There has been no interim adverse drug reactions or rash. As noted above, there are no signs or symptoms of upper airway involvement and rash is in a near identical pattern to previous fixed drug eruption. Patient received Benadryl 50 mg by mouth and had some relief of her itching. She should use Benadryl 25- 50 mg every 6 hours as needed for itching. The patient is aware that Benadryl is sedating and she cannot participate in activities requiring her full attention while taking it. Also, triamcinolone 0.1% cream will be prescribed to be used twice a day on lesions. 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 She should return to the ER if she has any difficulty breathing/swallowing or if she has persistent severe itching Discharge - Discharge Information Problems reviewed: Yes Clinical Impression/Diagnosis: Fixed drug eruption Condition: Stable Disposition: HOME - Additional Discharge Information Prescriptions: Triamcinolone 0.1% Cream [Aristocort 0.1% Cream -] 1 applic TP BID #1 tube - Follow up/Referral - Patient Discharge Instructions Patient Printed Discharge Instructions: DI for Adverse Drug Reaction -- Allergic Additional Instructions: Do not take Diflucan in the future (as well as sulfa/Flagyl as previously advised) Benadryl 25 to 50 mg every 6 hours as needed for itching Triamcinolone 0.1% cream twice a day to rash for the next 10 days Follow-up with your doctor within the next 48 hours No work until August 11 Return to ER if you have lip/tongue swelling or you have difficulty swallowing/breathing - Post Discharge Activity Work/Back to School Note: Back to Work
[2020-08-06 19:45] VITALS: BP 110/71; PULSE 90; TEMP 99.2; BMI 28.9
[2020-08-06] MEDS ORDERED: diphenhydrAMINE HCL 25 MG CAPSULE (FP) PO ONE (19:58)
[2020-08-06] MEDS ORDERED: diphenhydrAMINE HCL 50 MG CAPSULE ONE (20:02)
== END 2020-08-06 20:18 | disposition home or self-care (01) ==
LOC: FER 19:26
DX: L27.1 Localized skin eruption due to drugs and medicaments taken internally (principal)
CPT/HCPCS: 99283-25